=== PATIENT | male | born 2000 | race Caucasian/White ===

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

== ENCOUNTER 2019-01-10 23:09 | Emergency (ER) | payer MEDICAID ==
[~2019-01-10] VITALS: Ht 165.1 cm; Wt 62.4 kg
[~2019-01-10 23:09] MED LIST changes: +DOXY100T2 PO
[2019-01-10 23:12] VITALS: Ht 165.1 cm; Wt 62.4 kg
[2019-01-10] MEDS ORDERED: DOXYCYCLINE 100 MG TAB PO ONE (23:30)
[2019-01-10] MEDS ORDERED: CEFTRIAXONE 250 MG INJ IM ONE (23:30)
[2019-01-10] MEDS ORDERED: AZITHROMYCIN 500 MG TAB PO ONE (23:30)
== END 2019-01-11 01:02 | disposition home or self-care (01) ==
LOC: FTE 23:09
DX: A64 Unspecified sexually transmitted disease (principal); F17.210 Nicotine dependence, cigarettes, uncomplicated
CPT/HCPCS: 36415; 81001; 86592; 87086; 87591; 96372; J0696; Z7502; Z7610